=== PATIENT | female | born 1945 | race Caucasian/White ===

== ENCOUNTER 2018-02-01 12:04 | Emergency (ER) | payer MEDICARE, OTHER ==
[~2018-02-01] VITALS: Ht 157.5 cm; Wt 96.6 kg
[~2018-02-01 12:04] MED LIST: ACYCLOVIR 400400 MG; ADULT LOW DOSE81 MG; AMLODIPINE BESYL5 MG; ANASTROZOLE1 MG PO; ASPIRIN325 PO; AZITHROMYCIN 2250 MG PO; B-COMPLEX-VITA1 EACH PO; CALCIUM 500 +1 EAC5 PO; CARAFATE 1 GM TA1 G1 PO; CELEBREX 200 M200 M1; CELEXA40 MG PO; CLEOCIN HCL150 MG PO; DALIRESP500 MCG; DESYREL50 MG PO; ERY-TAB500 MG PO; FISH OIL 1,001000 M2 PO; FISH OIL 1,2001 EAC4 PO; FISHOIL PO; FLAGYL500 MG; FLEXERIL PO; GLUCOPHAGE XR500 MG PO; GLUCOPHAGE500 MG PO; GRALISE1 EACH PO; HCTZ; HYDROCHLOROTHIA25 M1 PO; HYDROCHLOROTHIA25 M2 PO; HYDROCODON-ACE1 EAC7 PO; HYDROCODONE-AP1 EAC6 PO; KLOR-CON 10 ER10 MEQ PO; KLOR-CON 1010 MEQ; LEVAQUIN 500 M500 M1; LEVAQUIN 500 M500 M2 PO; LEVOTHYROXIN0.025 MG; LEVOTHYROXIN0.025 MG PO; LEVOTHYROXINE0.05 MG PO; LOPRESSOR 12.12.5 MG PO; LOPRESSOR25; MELOXICAM7.5 MG PO; METFORMIN HCL500 MG; METOPROLOL TART25 MG PO; MULTIVITAMINS PO; NAPROSYN500 M1 PO; NEURONTIN 300300 M1 PO; NEURONTIN 400400 M1 PO; NEURONTIN600 MG PO; NITROGLYCERIN0.4 MG SUBLING; NORCO 5-325 TA1 EACH PO; NORVASC 5 MG TAB5 MG PO; NUCYNTA50 MG PO; OMEPRAZOLE10 MG PO; ONDANSETRON HCL4 M2 PO; PHENERGAN 25 MG25 M1 PO; POTASSIUM20 PO; PROPOXY-N-APAP1 EACH PO; SAVELLA1 EACH; SAVELLA1 EACH PO; SINGULAIR 10 MG10 M1 PO; SINGULAIR 10 MG10 MG; SPIRIVA18 MCG INH; SYNTHROID PO; TRAMADOL 50 MG50 MG; TRAMADOL 50 MG50 MG PO; TRAZODONE 150150 M1 PO; ULTRAM 50MG TAB50 MG PO; VALIUM5 MG PO; VICODIN 5-5001 EACH PO; VITAMIN D1000 UNI1 PO; XANAX 0.25 MG0.25 MG PO; ZEGERID 20 MG1 EACH PO; ZESTRIL10 MG PO
[2018-02-01 12:09] VITALS: BP 153/75
[2018-02-01] MEDS ORDERED: CELEXA40 MG PO (12:13)
[2018-02-01] MEDS ORDERED: TOLTERODINE TART2 M1 PO (12:13)
[2018-02-01] MEDS ORDERED: D3 DOTS2000 UNIT PO (12:14)
[2018-02-01] MEDS ORDERED: UNICOMPLEX M TA1 TA1 PO (12:14)
== END 2018-02-01 13:20 | disposition home or self-care (01) ==
LOC: M.ERS 12:04
DX: S63.592A Other specified sprain of left wrist, initial encounter (principal); M19.90 Unspecified osteoarthritis, unspecified site; M79.7 Fibromyalgia; E11.9 Type 2 diabetes mellitus without complications; E03.9 Hypothyroidism, unspecified; Z96.652 Presence of left artificial knee joint; Z85.3 Personal history of malignant neoplasm of breast; Z90.11 Acquired absence of right breast and nipple; Z88.5 Allergy status to narcotic agent; Z88.0 Allergy status to penicillin; Z88.8 Allergy status to other drugs, medicaments and biological substances; W18.39XA Other fall on same level, initial encounter; Y93.89 Activity, other specified; Y99.8 Other external cause status; Y92.89 Other specified places as the place of occurrence of the external cause

== ENCOUNTER 2018-09-19 15:32 | Emergency (ER) | payer MEDICARE, OTHER ==
[~2018-09-19] VITALS: Ht 157.5 cm; Wt 84.8 kg
[~2018-09-19 15:32] MED LIST changes: +D3 DOTS2000 UNIT PO; +TOLTERODINE TART2 M1 PO; +UNICOMPLEX M TA1 TA1 PO
[2018-09-19] MEDS ORDERED: NABUMETONE 750750 M1 PO (16:33)
[2018-09-19] MEDS ORDERED: ZANAFLEX4 MG PO (16:33)
[2018-09-19] MEDS ORDERED: ONDANSETRON HCL4 M2 PO (16:35)
[2018-09-19 16:43] VITALS: BP 142/72
== END 2018-09-19 16:43 | disposition home or self-care (01) ==
LOC: M.ERS 15:32
DX: S63.501A Unspecified sprain of right wrist, initial encounter (principal); S09.8XXA Other specified injuries of head, initial encounter; I10 Essential (primary) hypertension; E11.9 Type 2 diabetes mellitus without complications; E03.9 Hypothyroidism, unspecified; M79.7 Fibromyalgia; M19.90 Unspecified osteoarthritis, unspecified site; Z90.11 Acquired absence of right breast and nipple; Z96.653 Presence of artificial knee joint, bilateral; Z88.0 Allergy status to penicillin; Z98.890 Other specified postprocedural states; Z88.5 Allergy status to narcotic agent; Z85.3 Personal history of malignant neoplasm of breast; Z88.8 Allergy status to other drugs, medicaments and biological substances; W01.190A Fall on same level from slipping, tripping and stumbling with subsequent striking against furniture, initial encounter; Y92.000 Kitchen of unspecified non-institutional (private) residence as the place of occurrence of the external cause; Y93.E5 Activity, floor mopping and cleaning; Y99.8 Other external cause status

== ENCOUNTER → 2019-07-28 | Outpatient (CLI) | payer OTHER ==
[~2019-07-28] MED LIST changes: +NABUMETONE 750750 M1 PO; +ZANAFLEX4 MG PO
== END ==
LOC: M.LAB 13:14
PROVIDERS: ATTEND Internal Medicine Hematology & Oncology
DX: C50.911 Malignant neoplasm of unspecified site of right female breast (principal)